=== PATIENT | male | born 1965 | race Caucasian/White ===

== ENCOUNTER 2017-03-07 13:45 | Emergency (ER) | payer BC ==
[2017-03-07 13:52] VITALS: RESP 20
--- NOTE | 2017-03-07 14:04 | EDPHY ---
H & P Stated Complaint: right sided headache for 4 days not getting better, left arm tingling Time Seen by Provider: 03/07/17 14:04 HPI/ROS: CHIEF COMPLAINT: Right retro-orbital/occipital headache HISTORY OF PRESENT ILLNESS: The patient presents to the emergency department with complaint this of a right retro-orbital and occipital headache for the past 4 days. The patient's symptoms have waxed and waned in severity however have not entirely resolved. The patient does report on day 2 of the headache he had some mild paresthesias in his right hand. The patient currently denies any peripheral numbness or weakness. He has no history of fall or trauma. He denies cervical manipulation. The patient does complain of some mild right anterior neck discomfort. The patient denies significant past medical history. REVIEW OF SYSTEMS: A comprehensive 10 point review of systems is otherwise negative aside from elements mentioned in the history of present illness. Source: Patient - Personal History Current Tetanus/Diphtheria Vaccine: Yes Current Tetanus Diphtheria and Acellular Pertussis (TDAP): Yes Tetanus Vaccine Date: < 10 years - Medical/Surgical History Hx Asthma: No Hx Chronic Respiratory Disease: No Hx Diabetes: No Hx Cardiac Disease: No Hx Renal Disease: No Hx Cirrhosis: No Hx Alcoholism: No Hx HIV/AIDS: No Hx Splenectomy or Spleen Trauma: No Other PMH: none reported - Social History Smoking Status: Never smoked - Physical Exam Exam: General Appearance: Alert, no distress Eyes: Pupils equal and round no pallor or injection Neck: No carotid bruit ENT, Mouth: Mucous membranes moist Respiratory: There are no retractions, lungs are clear to auscultation Cardiovascular: Regular rate and rhythm Gastrointestinal: Abdomen is soft and nontender, no masses, bowel sounds normal Neurological: A&O, normal motor function, normal sensory exam, normal cranial nerves Skin: Warm and dry, no rashes Musculoskeletal: Neck is supple nontender Extremities: symmetrical, full range of motion Constitutional: Initial Vital Signs Temperature (C) 36.9 C 03/07/17 13:48 Heart Rate 66 03/07/17 13:48 Respiratory Rate 20 03/07/17 13:48 Blood Pressure 147/84 H 03/07/17 13:48 O2 Sat (%) 96 03/07/17 13:48 O2 Delivery Mode Nasal Cannula O2 (L/minute) 2 Allergies/Adverse Reactions: No Known Allergies Allergy (Unverified 03/07/17 13:47) Home Medications: Medication Instructions Recorded Claritin 03/07/17 Ondansetron Odt [Zofran Odt] 4 mg PO Q4PRN PRN #20 tab 03/07/17 Viagra 03/07/17 Medical Decision Making - Diagnostics Imaging: Imaging Impressions Head CT 03/07/17 14:30 Impression: Nothing acute identified. . No source for symptoms identified Results called to Dr. Asher Garcia. General information for patients regarding this examination can be found at [email or web address]. If you have questions or comments about this report, please contact me at [phone] (hospital) or [phone] (cell). Head CTA 03/07/17 14:30 Impression: Normal CTA of the [place]. 2. CT Angiography of the Neck (With Contrast),15:31 Clinical Indications: Possible right carotid dissection, eye pain, left arm numbness Technique: During IV administration of 85 mL of Isovue 370 intravenously, helical multidetector data acquisition was obtained from the upper thorax cephalad through the skull base. The thinly collimated data were manipulated in multiple projections on the 3D computer workstation by the radiologist. Dose reduction techniques were utilized. Findings: Carotid bifurcations are widely patent. Both vertebral arteries are open. No evidence of atherosclerotic disease, resection, hemodynamically significant stenosis or ulceration. Both internal jugular veins are patent. There is no pathologic cervical adenopathy. The thyroid gland looks normal. There is mild bilateral foraminal stenosis at C5-C6 related to uncovertebral joint spurring. All cervical neural foramen appear widely patent. Final concordant results discussed with Dr. Asher Bermudez at 4:03 PM. Impression: normal. No evidence for carotid dissection. Note: All stenoses are calculated using NASCET Criteria. ED Course/Re-evaluation: The patient presents to the ED for evaluation of an acute headache for the past 4 days. The patient describes a constant right retro-orbital headache with radiation to his right occipital scalp. The patient does have some hyperesthesias in scalp. There is no obvious rash. The patient also has some mild right anterior neck discomfort. The patient is noted to have a normal neurologic examination in the ED. He is afebrile without meningeal symptoms. Given the patient's complaint of an acute headache and given the features of the headache in a CT and CT angiogram have been ordered. Fortunately, the results of the patient's head CT scan as well as CT angiogram of the head and neck demonstrate no evidence of acute intracranial pathology. The patient received IV Toradol and 4 mg of IV Zofran. I re-evaluated the patient at 4:45 p.m.: The patient continues complaining of a 5/10 headache. He continues to be neurologically intact. Additional IV medications including Decadron, Dilaudid and IV fluids have been ordered. Patient was re-evaluated at 6:20 p.m.. He does report a material improvement of his headache. He currently complains of 1/10 headache. The patient is comfortable being discharged home at this point time. He will return to the ED for worsening symptoms or other concerns. He has been referred to the neurologist at the [facility] for unimproved symptoms. Differential Diagnosis: Differential diagnosis considered includes subarachnoid hemorrhage, intracranial hemorrhage, carotid artery dissection, vertebral dissection, migraine, [employer] malignancy - Data Points Laboratory Results: Laboratory Results 03/07/17 14:20 03/07/17 14:20 WBC 4.52 10^3/uL 10^3/uL (3.80-9.50) RBC 4.97 10^6/uL 10^6/uL (4.40-6.38) Hgb 16.0 g/dL g/dL (13.7-17.5) Hct 44.8 % % (40.0-51.0) MCV 90.1 fL fL (81.5-99.8) MCH 32.2 pg pg (27.9-34.1) MCHC 35.7 g/dL g/dL (32.4-36.7) RDW 13.9 % % (11.5-15.2) Plt Count 123 10^3/uL L 10^3/uL (150-400) MPV 10.1 fL fL (8.7-11.7) Neut % (Auto) 63.3 % % (39.3-74.2) Lymph % (Auto) 23.0 % % (15.0-45.0) [place] % (Auto) 11.3 % % (4.5-13.0) Eos % (Auto) 1.8 % % (0.6-7.6) Baso % (Auto) 0.4 % % (0.3-1.7) Nucleat RBC Rel Count 0.0 % % (0.0-0.2) Absolute Neuts (auto) 2.86 10^3/uL 10^3/uL (1.70-6.50) Absolute Lymphs (auto) 1.04 10^3/uL 10^3/uL (1.00-3.00) Absolute Monos (auto) 0.51 10^3/uL 10^3/uL (0.30-0.80) Absolute Eos (auto) 0.08 10^3/uL 10^3/uL (0.03-0.40) Absolute Basos (auto) 0.02 10^3/uL 10^3/uL (0.02-0.10) Absolute Nucleated RBC 0.00 10^3/uL 10^3/uL (0-0.01) Immature Gran % 0.2 % % (0.0-1.1) Immature Gran # 0.01 10^3/uL 10^3/uL (0.00-0.10) Medications Given: Discontinued Medications Dexamethasone (Decadron Injection) 10 mg IVP EDNOW ONE Stop: 03/07/17 16:44 Last Admin: 03/07/17 17:03 Dose: 10 mg Hydromorphone HCl (Dilaudid) 0.5 mg IVP EDNOW ONE Stop: 03/07/17 16:43 Last Admin: 03/07/17 17:00 Dose: 0.5 mg Sodium Chloride (Ns) 1,000 mls @ 0 mls/hr IV ONCE ONE PRN Reason: Wide Open Stop: 03/07/17 16:43 Last Admin: 03/07/17 17:00 Dose: 1,000 mls Ketorolac Tromethamine (Toradol) 30 mg IVP EDNOW ONE Stop: 03/07/17 15:54 Last Admin: 03/07/17 16:15 Dose: 30 mg Ondansetron HCl (Zofran) 4 mg IVP EDNOW ONE Stop: 03/07/17 14:13 Last Admin: 03/07/17 14:40 Dose: 4 mg Departure - Departure Disposition: Home, Routine, Self-Care Clinical Impression: Acute headache Condition: Good Instructions: Acute Headache (ED) Additional Instructions: 1. Please schedule a follow-up appointment with the neurologist at the [facility] for any unimproved symptoms. 2. Please return to the ED for markedly worsening symptoms, fever, numbness, weakness or other concerns. 3. Take Ibuprofen or Motrin 600 mg by mouth three times a day. 4. Zofran as needed for nausea Referrals: Ayaka Figueroa MD [Primary Care Provider] - As per Instructions Shauna Anguiano DO [Non Staff and Non MD] - As per Instructions Prescriptions: Ondansetron Odt [Zofran Odt] 4 mg PO Q4PRN PRN #20 tab PRN Reason: For Nausea
[2017-03-07] MEDS ORDERED: ONDANSETRON 4 MG/2 ML VIAL IVP ONE (14:12)
[2017-03-07 14:33] LABS: % IMMATURE GRANULYOCYTES 0.2 % (0.0-1.1); ABSOLUTE IMMATURE GRANULOCYTES 0.01 10^3/uL (0.00-0.10); ADD DIFF? NO; ADD MORPH? NO; ADD SCAN? NO; ATYPICAL LYMPHOCYTE FLAG 10 (0-99); FRAGMENT RBC FLAG 0 (0-99); HEMATOCRIT 44.8 % (40.0-51.0); LEFT SHIFT FLG 0 (0-99); LIPEMIA HEMOLYSIS FLAG 90 (0-99); MEAN CELL HEMOGLOBIN 32.2 pg (27.9-34.1); MEAN CELL HEMOGLOBIN CONCENTR. 35.7 g/dL (32.4-36.7); MEAN CELL VOLUME 90.1 fL (81.5-99.8); MEAN PLATELET VOLUME 10.1 fL (8.7-11.7); PLATELET CLUMPS FLAG 10 (0-99); PLATELET COUNT 123 10^3/uL (150-400); RED BLOOD CELL COUNT 4.97 10^6/uL (4.40-6.38); RED CELL DISTRIBUTION WIDTH 13.9 % (11.5-15.2)
[2017-03-07] MEDS ORDERED: IOPAMIDOL (ISOVUE 370) 100 ML BTL IV ONE (14:38)
[2017-03-07] MEDS ORDERED: KETOROLAC 30 MG/1 ML SDV IVP ONE (15:53)
[2017-03-07 16:19] VITALS: TEMP 98.1
[2017-03-07] MEDS ORDERED: NS 1,000 ML IV ONE (16:42)
[2017-03-07] MEDS ORDERED: HYDROmorphONE/DILAUDID 1 MG/ML SYR IVP ONE (16:42)
[2017-03-07] MEDS ORDERED: DEXAMETHASONE 10 MG/ML VIAL IVP ONE (16:43)
[2017-03-07 18:04] VITALS: BP 121/75; O2SAT 97
[2017-03-07 18:33] VITALS: PULSE 55
== END 2017-03-07 18:33 | disposition home or self-care (01) ==
DX: R51 Headache (principal)
CPT/HCPCS: 82947-QW; 96374; J1170; J1885; J2405; Q9967